=== PATIENT | female | born 1950 | race Two or more races ===

== ENCOUNTER 2024-05-09 17:11 | Inpatient (IN) | payer OTHER ==
[2024-05-09 19:08] LABS: EOS % 3.6 % (0-4.5); HEMATOCRIT 33.9 % (32.4-45.2); LYMPH % 35.2 % (8-40); MCH 25.8 pg (25.7-33.7); MCHC 32.5 g/dl (32.0-36.0); MEAN CELL VOLUME 79.4 fl (80-96); MEAN PLT VOLUME 9.1 fl (7.5-11.1); MONO % 7.9 % (3.8-10.2); NEUT % 52.3 % (42.8-82.8); PLATELET COUNT 224 10^3/uL (134-434); RBC 4.27 M/mm3 (3.60-5.2); RDW 20.2 % (11.6-15.6); WHITE BLOOD COUNT 4.1 K/mm3 (4.0-10.0)
[2024-05-09 19:15] LABS: INR 1.03 (0.83-1.09); PROTHROMBIN TIME (PATIENT) 11.2 SEC (9.7-13.0)
[2024-05-09 19:18] LABS: ACTIVATED PTT 31.9 SECONDS (25.2-36.5)
[2024-05-09 19:27] LABS: CHLORIDE 110 mmol/L (98-107); POTASSIUM 3.7 mmol/L (3.5-5.1); SODIUM 142 mmol/L (136-145)
[2024-05-09 19:29] LABS: CALCIUM 9.1 mg/dL (8.5-10.1)
[2024-05-09 19:30] LABS: ALBUMIN 3.6 g/dl (3.4-5.0); ANION GAP 6 mmol/L (4-13); BLOOD UREA NITROGEN 16.2 mg/dL (7-18); CO2 26 mmol/L (21-32); GLUCOSE,RANDOM 86 mg/dL (74-106); MAGNESIUM 1.8 mg/dL (1.8-2.4)
[2024-05-09 19:33] LABS: CREATININE 0.6 mg/dL (0.55-1.3); PHOSPHOROUS 3.1 mg/dL (2.5-4.9); SGOT/AST 11 U/L (15-37); SGPT/ALT 13 U/L (13-61)
[2024-05-09 19:34] LABS: BILIRUBIN,TOTAL 0.6 mg/dL (0.2-1); TOT PROT 6.8 g/dl (6.4-8.2)
[2024-05-09 19:36] LABS: ALK PHOS 81 U/L (45-117)
[2024-05-09 19:38] LABS: N-TERMINAL BNP 616.8 pg/ml (5-125)
[2024-05-09] MEDS ORDERED: ASPIRIN 81 MG CHEWABLE TABLETS ONE (21:21)
[2024-05-09] MEDS: ASPIRIN 81 MG CHEWABLE TABLETS PO ONE (21:27)
[2024-05-09] MEDS ORDERED: hydrALAZINE HCL 20 MG/ML VIAL ONE (21:41)
[2024-05-09] MEDS: hydrALAZINE HCL 20 MG/ML VIAL IVPUSH ONE (21:48)
[2024-05-10 02:22] VITALS: BMI 21.9
[2024-05-10] MEDS: hydrALAZINE HCL 20 MG/ML VIAL IVPUSH ONE (02:49)
[2024-05-10] MEDS: amLODIPine BESYLATE 5 MG TABLET (FP) PO ONE (04:11)
[2024-05-10] MEDS: INSULIN ASPART SLIDING SCALE (NOVOLOG) 1 VIAL SQ SCH (06:38)
[2024-05-10] MEDS: hydrALAZINE HCL 10 MG TABLET PO SCH (06:39)
[2024-05-10 07:43] LABS: HEMATOCRIT 36.4 % (32.4-45.2); HEMOGLOBIN 11.5 GM/dL (10.7-15.3); MCH 25.3 pg (25.7-33.7); MCHC 31.5 g/dl (32.0-36.0); MEAN CELL VOLUME 80.3 fl (80-96); MEAN PLT VOLUME 9.4 fl (7.5-11.1); PLATELET COUNT 217 10^3/uL (134-434); RBC 4.54 M/mm3 (3.60-5.2); RDW 20.4 % (11.6-15.6)
[2024-05-10 08:03] LABS: POTASSIUM 3.4 mmol/L (3.5-5.1)
[2024-05-10 08:07] LABS: CALCIUM 9.2 mg/dL (8.5-10.1)
[2024-05-10 08:08] LABS: BLOOD UREA NITROGEN 12.2 mg/dL (7-18); MAGNESIUM 1.7 mg/dL (1.8-2.4)
[2024-05-10 08:11] LABS: CREATININE 0.7 mg/dL (0.55-1.3); PHOSPHOROUS 3.2 mg/dL (2.5-4.9)
[2024-05-10] MEDS: amLODIPine BESYLATE 5 MG TABLET (FP) PO SCH (09:50)
[2024-05-10] MEDS: POTASSIUM CHLORIDE ORAL LIQUID 20 MEQ/15 ML PO ONE (09:50)
[2024-05-10] MEDS: MAGNESIUM 1GM/D5W 100ML - 100 ML IVPB IVPB ONE (14:54)
[2024-05-10] MEDS: KCL 10 MEQ IVPB 10 MEQ/100 ML INFUS.BAG IVPB SCH (16:20)
[2024-05-10] MEDS: QUEtiapine FUMARATE 25 MG TABLET PO PRN (21:49)
[2024-05-11 16:23] LABS: BASO % 0.9 % (0-2.0); EOS % 3.3 % (0-4.5); HEMATOCRIT 34.4 % (32.4-45.2); HEMOGLOBIN 11.2 GM/dL (10.7-15.3); LYMPH % 32.5 % (8-40); MCHC 32.7 g/dl (32.0-36.0); MEAN CELL VOLUME 79.6 fl (80-96); MEAN PLT VOLUME 9.4 fl (7.5-11.1); MONO % 7.2 % (3.8-10.2); NEUT % 56.1 % (42.8-82.8); PLATELET COUNT 216 10^3/uL (134-434); RBC 4.31 M/mm3 (3.60-5.2); RDW 20.5 % (11.6-15.6); WHITE BLOOD COUNT 3.9 K/mm3 (4.0-10.0)
[2024-05-11 16:45] LABS: POTASSIUM 3.9 mmol/L (3.5-5.1)
[2024-05-11 16:48] LABS: CALCIUM 9.1 mg/dL (8.5-10.1)
[2024-05-11 16:49] LABS: BLOOD UREA NITROGEN 16.6 mg/dL (7-18); MAGNESIUM 1.9 mg/dL (1.8-2.4)
[2024-05-11 16:50] LABS: CHOLESTEROL 120 mg/dL (50-200)
[2024-05-11 16:52] LABS: CREATININE 0.8 mg/dL (0.55-1.3); LDL CHOLESTEROL (ONLY SJRH) 62 mg/dL (5-100)
[2024-05-11 16:54] LABS: HDL CHOLESTEROL 53 mg/dL (40-60)
[2024-05-11] MEDS ORDERED: QUEtiapine FUMARATE 25 MG TABLET PO PRN (21:54)
[2024-05-11] MEDS: INSULIN ASPART SLIDING SCALE (NOVOLOG) 1 VIAL SQ SCH (22:38)
[2024-05-11] MEDS: hydrALAZINE HCL 10 MG TABLET PO SCH (22:38)
[2024-05-12 09:34] LABS: BASO % 0.6 % (0-2.0); EOS % 3.2 % (0-4.5); HEMOGLOBIN 11.7 GM/dL (10.7-15.3); LYMPH % 30.7 % (8-40); MCH 25.9 pg (25.7-33.7); MCHC 32.4 g/dl (32.0-36.0); MEAN CELL VOLUME 79.9 fl (80-96); MEAN PLT VOLUME 9.7 fl (7.5-11.1); MONO % 6.9 % (3.8-10.2); NEUT % 58.6 % (42.8-82.8); PLATELET COUNT 223 10^3/uL (134-434); RBC 4.51 M/mm3 (3.60-5.2); RDW 20.1 % (11.6-15.6); WHITE BLOOD COUNT 4.2 K/mm3 (4.0-10.0)
[2024-05-12] MEDS: amLODIPine BESYLATE 5 MG TABLET (FP) PO SCH (10:15)
[2024-05-12 10:49] LABS: POTASSIUM 4.1 mmol/L (3.5-5.1)
[2024-05-12 10:55] LABS: CALCIUM 9.5 mg/dL (8.5-10.1); MAGNESIUM 1.9 mg/dL (1.8-2.4)
[2024-05-12 10:59] LABS: CREATININE 0.7 mg/dL (0.55-1.3)
[2024-05-12] MEDS: ATORVASTATIN CA 10 MG TABLET (FP) PO SCH (22:14)
[2024-05-13] MEDS ORDERED: INSULIN (LEVEMIR) 100 UNITS/ML UNITS SQ ONE (07:11)
[2024-05-13] MEDS: ASPIRIN 81 MG CHEWABLE TABLETS PO SCH (10:00)
[2024-05-13] MEDS: amLODIPine BESYLATE 10 MG TABLET (FP) PO SCH (10:00)
[2024-05-13] MEDS: PANTOPRAZOLE 20 MG TABLET PO SCH (10:00)
[2024-05-13 14:09] VITALS: RESP 18
[2024-05-13 14:35] VITALS: BP 118/55; PULSE 52; TEMP 98.8
== END 2024-05-13 22:19 | disposition home or self-care (01) | DRG 305 ==
LOC: JER 17:11 → JERBED 20:16 → J4W 05-10 01:36 → OBSVTOIN 05-10 13:40 → J6S 05-11 22:17
PROVIDERS: ADMIT Internal Medicine; ATTEND Internal Medicine
DX: I16.0 Hypertensive urgency (principal); I11.0 Hypertensive heart disease with heart failure; R00.1 Bradycardia, unspecified; E11.9 Type 2 diabetes mellitus without complications; I50.9 Heart failure, unspecified; E87.6 Hypokalemia; E83.42 Hypomagnesemia; R79.89 Other specified abnormal findings of blood chemistry
CPT/HCPCS: 0241U-QW; 36415; 71045-TC-FY; 80048; 80053; 80061; 82550; 82962; 83735; 83880; 84100; 84443; 84484; 85025; 85027; 85610; 85730; 86850; 86900; 86901; 87635; 93005; 93010; 93306-TC; 99285-25; G0378

== ENCOUNTER 2024-05-17 20:06 | Emergency (ER) | payer OTHER ==
[2024-05-17 20:40] VITALS: BMI 20.5
[2024-05-17] MEDS ORDERED: ACETAMINOPHEN 325 MG TABLET (FP) ONE (21:49)
[2024-05-17] MEDS: ACETAMINOPHEN 500 MG TABLET (FP) PO ONE (21:55)
[2024-05-18 05:53] VITALS: TEMP 97.9
[2024-05-18] MEDS ORDERED: amLODIPine BESYLATE 10 MG TABLET (FP) ONE (06:43)
[2024-05-18] MEDS ORDERED: hydrALAZINE HCL 10 MG TABLET ONE (06:44)
[2024-05-18] MEDS: amLODIPine BESYLATE 10 MG TABLET (FP) PO ONE (06:48)
[2024-05-18] MEDS: hydrALAZINE HCL 10 MG TABLET PO ONE (06:48)
[2024-05-18 08:31] VITALS: BP 211/79; PULSE 68; RESP 17
== END 2024-05-18 08:32 | disposition home or self-care (01) ==
LOC: JER 20:06
DX: M25.551 Pain in right hip (principal); M54.50 Low back pain, unspecified; R10.2 Pelvic and perineal pain; W01.0XXA Fall on same level from slipping, tripping and stumbling without subsequent striking against object, initial encounter
CPT/HCPCS: 71045-TC-FY; 72170-TC-FY; 72192-TC; 73502-TC-RT-FY; 99284-25

== ENCOUNTER 2024-08-14 12:11 | Inpatient (IN) | payer OTHER ==
[2024-08-14 13:33] LABS: ABSOLUTE IMMATURE GRANULOCYTES 0.01 x10^3/uL (0.0-0.031); BASOPHILS # 0.03 x10^3/uL (0.01-0.08); EOSINOPHIL % 2.6 % (0.7-5.8); EOSINOPHILS # 0.13 x10^3/uL (0.04-0.36); HEMATOCRIT 38.3 % (34.1-44.9); HEMOGLOBIN 11.8 g/dL (11.2-15.7); MCHC 30.8 g/dl (32.2-35.5); MEAN CELL VOLUME 86.7 fl (79.4-94.8); MEAN PLT VOLUME 11.7 fl (9.4-12.3); MONOCYTE # 0.44 x10^3/uL (0.24-0.86); MONOCYTE % 8.8 % (4.7-12.5); PLATELET COUNT 227 x10^3/uL (182-369)
[2024-08-14 14:04] LABS: PH,URINE 7.5 (5.0-8.0); URINE APPEARANCE CLEAR; URINE BILIRUBIN NEGATIVE (NEGATIVE); URINE COLOR YELLOW; URINE GLUCOSE (UA) NEGATIVE (NEGATIVE); URINE KETONE NEGATIVE (NEGATIVE); URINE LEUK ESTERASE NEGATIVE (NEGATIVE); URINE NITRITE NEGATIVE (NEGATIVE); URINE PROTEIN TRACE (NEGATIVE); URINE UROBILINOGEN 0.2 mg/dL (0.2-1.0)
[2024-08-14 14:08] LABS: POTASSIUM 4.6 mmol/L (3.5-5.1)
[2024-08-14 14:13] LABS: ALBUMIN 3.8 g/dl (3.4-5.0); CALCIUM 9.8 mg/dL (8.5-10.1); MAGNESIUM 2.2 mg/dL (1.8-2.4)
[2024-08-14 14:16] LABS: CREATININE 0.7 mg/dL (0.55-1.3)
[2024-08-14 14:17] LABS: BILIRUBIN,TOTAL 0.7 mg/dL (0.2-1); TOT PROT 7.2 g/dl (6.4-8.2)
[2024-08-14] MEDS ORDERED: hydrALAZINE HCL 20 MG/ML VIAL ONE (15:59)
[2024-08-14] MEDS: hydrALAZINE HCL 20 MG/ML VIAL IVPUSH ONE (16:05)
[2024-08-14 16:48] LABS: POTASSIUM 3.5 mmol/L (3.5-5.1)
[2024-08-14 17:02] LABS: ALBUMIN 3.6 g/dl (3.4-5.0); BILIRUBIN,TOTAL 0.7 mg/dL (0.2-1); BLOOD UREA NITROGEN 15.8 mg/dL (7-18); CALCIUM 9.7 mg/dL (8.5-10.1); CREATININE 0.6 mg/dL (0.55-1.3); TOT PROT 6.7 g/dl (6.4-8.2)
[2024-08-14 20:01] VITALS: BMI 23.1
[2024-08-14] MEDS: hydrALAZINE HCL 10 MG TABLET PO SCH (21:16)
[2024-08-14] MEDS: INSULIN ASPART SLIDING SCALE (NOVOLOG) 1 VIAL SQ SCH (21:16)
[2024-08-14] MEDS: ATORVASTATIN CA 10 MG TABLET (FP) PO SCH (21:16)
[2024-08-15 07:22] LABS: HEMATOCRIT 35.1 % (34.1-44.9); HEMOGLOBIN 10.9 g/dL (11.2-15.7); MCHC 31.1 g/dl (32.2-35.5); MEAN CELL VOLUME 86.2 fl (79.4-94.8); MEAN PLT VOLUME 11.7 fl (9.4-12.3); PLATELET COUNT 230 x10^3/uL (182-369); RDW 15.1 % (12.4-16.6)
[2024-08-15 07:29] LABS: POTASSIUM 3.7 mmol/L (3.5-5.1)
[2024-08-15 07:32] LABS: CALCIUM 9.7 mg/dL (8.5-10.1)
[2024-08-15 07:33] LABS: ALBUMIN 3.3 g/dl (3.4-5.0); BLOOD UREA NITROGEN 17.3 mg/dL (7-18)
[2024-08-15 07:36] LABS: CREATININE 0.7 mg/dL (0.55-1.3); PHOSPHOROUS 3.8 mg/dL (2.5-4.9)
[2024-08-15 07:38] LABS: BILIRUBIN,TOTAL 0.9 mg/dL (0.2-1); TOT PROT 6.2 g/dl (6.4-8.2)
[2024-08-15] MEDS ORDERED: LORazepam 2 MG/ML SDV VIAL IVPUSH PRN (08:18)
[2024-08-15] MEDS ORDERED: VITAMIN B COMP W-C 1 EA TABLET (NEPHRO-VITE) PO SCH (10:00)
[2024-08-15] MEDS: amLODIPine BESYLATE 10 MG TABLET (FP) PO SCH (10:33)
[2024-08-15] MEDS: VITAMIN B COMP W-C 1 EA TABLET (NEPHRO-VITE) PO SCH (10:33)
[2024-08-15] MEDS: CYANOCOBALAMIN 1,000 MCG TABLET (FP) PO SCH (10:33)
[2024-08-15] MEDS: PANTOPRAZOLE 20 MG TABLET PO SCH (10:33)
[2024-08-15] MEDS: VALSARTAN 80 MG TABLET PO SCH (15:59)
[2024-08-17] MEDS: LACTOBACILLUS ACIDOPHILUS 1 TABLET PO SCH (11:18)
[2024-08-17 18:15] VITALS: RESP 18
[2024-08-17] MEDS: BANATROL PLUS POWDER PACKET PO SCH (21:18)
[2024-08-18 07:49] LABS: ABSOLUTE IMMATURE GRANULOCYTES 0.01 x10^3/uL (0.0-0.031); BASOPHILS # 0.03 x10^3/uL (0.01-0.08); EOSINOPHIL % 4.4 % (0.7-5.8); EOSINOPHILS # 0.19 x10^3/uL (0.04-0.36); HEMATOCRIT 39.1 % (34.1-44.9); HEMOGLOBIN 11.9 g/dL (11.2-15.7); MCHC 30.4 g/dl (32.2-35.5); MEAN CELL VOLUME 87.9 fl (79.4-94.8); MEAN PLT VOLUME 11.8 fl (9.4-12.3); MONOCYTE # 0.31 x10^3/uL (0.24-0.86); MONOCYTE % 7.2 % (4.7-12.5); PLATELET COUNT 246 x10^3/uL (182-369); RDW 15.6 % (12.4-16.6)
[2024-08-18 08:05] LABS: POTASSIUM 4.1 mmol/L (3.5-5.1)
[2024-08-18 08:16] LABS: CALCIUM 10.2 mg/dL (8.5-10.1)
[2024-08-18 08:23] LABS: CREATININE 0.8 mg/dL (0.55-1.3)
[2024-08-18 14:59] VITALS: BP 149/93; PULSE 59; TEMP 97.2
== END 2024-08-18 17:00 | disposition home or self-care (01) | DRG 281 ==
LOC: JER 12:11 → JERBED 17:42 → J4W 18:17 → OBSVTOIN 08-15 14:41
PROVIDERS: ADMIT Internal Medicine; ATTEND Internal Medicine
DX: I21.A1 Myocardial infarction type 2 (principal); G91.2 (Idiopathic) normal pressure hydrocephalus; I11.0 Hypertensive heart disease with heart failure; E11.9 Type 2 diabetes mellitus without complications; I50.9 Heart failure, unspecified; R29.6 Repeated falls; Z86.73 Personal history of transient ischemic attack (TIA), and cerebral infarction without residual deficits; W19.XXXA Unspecified fall, initial encounter; Y93.89 Activity, other specified; Y92.89 Other specified places as the place of occurrence of the external cause; Y99.8 Other external cause status
CPT/HCPCS: 0241U-QW; 36415; 70450-TC; 71045-TC-FY; 72125-TC; 72170-TC-FY; 80048; 80053; 81003; 82962; 83735; 83880; 84100; 84484; 85025; 85027; 87086; 93005; 93010; 97116-GP; 97161-GP; 99291; G0378